=== PATIENT | female | born 1965 ===

== ENCOUNTER 2020-05-04 15:00 | Outpatient (REF) | payer BC, SELFPAY ==
--- NOTE | ~2020-05-04 | XR_ITS ---
EXAMINATION: XR SHOULDER, RIGHT CLINICAL INFORMATION: Right shoulder pain. COMPARISON: None TECHNIQUE: AP external rotation, Grashey, scapular Y, and axillary views of the right shoulder. FINDINGS: The glenohumeral and acromioclavicular joints are intact. There is no acute fracture or dislocation. Moderate calcification is seen anterior to the humeral head. The soft tissues are otherwise unremarkable. XR/XR shoulder RT min 2V IMPRESSION: Moderate calcification anterior to the right humeral head is nonspecific, but appears degenerative in nature. No acute abnormality or significant degenerative joint changes.
== END 2020-05-04 15:01 | disposition home or self-care (01) ==
LOC: HO.HOSX 15:00
PROVIDERS: Visit Provider Orthopaedic Surgery
DX: M25.511 Pain in right shoulder (principal)
CPT/HCPCS: 73030

== ENCOUNTER → 2020-05-05 13:02 | Outpatient (BNVA) | payer BC, SELFPAY | PROVIDERS: Visit Provider Orthopaedic Surgery | DX: M25.511 Pain in right shoulder (principal) ==